=== PATIENT | male | born 1960 | race African-American/Black ===

== ENCOUNTER 2016-12-07 09:53 | Emergency (ER) | payer MEDICAID ==
[~2016-12-07] VITALS: Ht 170.2 cm; Wt 100.0 kg
[~2016-12-07 09:53] MED LIST: ADVA115A INH; ALBUAER3 INH; AMLO10TA2 PO; DEXT1TAB18 PO; GEMF600T PO; GLUCTAB PO; LISI10TA PO; NITR1SUB3 SL; PRIL20TA2 PO; VENTAER INH
[2016-12-07 09:58] VITALS: BP 120/90; PULSE 86; RESP 20; TEMP 98.2; O2SAT 97
[2016-12-07] MEDS ORDERED: SODIUM CHLORIDE 0.9% FLUSH 5 ML FLUSH IVF PRN (10:45)
[2016-12-07] MEDS ORDERED: ASPIRIN 81 MG CHEW TAB PO ONE (10:45)
--- NOTE | 2016-12-07 10:56 | PD ---
HPI Chief Complaint: Chest Pain Time Seen by Provider: 10:19 Travel History International Travel<30 days: No Contact w/Intl Traveler<30days: No Traveled to known affect area: No History of Present Illness HPI 56-year-old male here for evaluation of chest pain. The patient has chronic low back pain. He states that he aggravated his lower back yesterday evening while lifting a heavy object. He went to his primary care physician at the medical office receptionist's today and while walking up the stairs he began to experience substernal chest pain. Pain described as a pressure, nonradiating, constant, worse with exertion, moderate. Low back pain is moderate, radiates down his left leg. He denies direct trauma to his lower back. No urinary or bowel incontinence or retention. No IVDU. No fevers or chills. States that he took 3 Valium yesterday evening and narcotic pain medication at home without relief of low back symptoms. He reports that he sees pain management for this issue. PFSH Past Medical History Arthritis: Yes Asthma: Yes Blood Disorders: No Anxiety: Yes Depression: No Heart Rhythm Problems: No Cancer: No Cardiac Catheterization: No Cardiovascular Problems: Yes High Cholesterol: No Chemotherapy: No Chest Pain: Yes Congestive Heart Failure: No COPD: Yes Cerebrovascular Accident: No Diabetes: Yes Patient Takes Glucophage: Yes Diminished Hearing: No Endocrine: No GERD: Yes Glaucoma: No Genitourinary: No Headaches: No Hepatitis: No Hiatal Hernia: No Hypertension: Yes Kidney Stones: No Musculoskeletal: Yes (back) Neurologic: No Psychiatric: No Reproductive: No Respiratory: Yes (COPD asthma) Migraines: No Myocardial Infarction: No Radiation Therapy: No Renal Failure: No Seizures: No Sickle Cell Disease: No Sleep Apnea: No Thyroid Disease: No Triglycerides - High: Yes Ulcer: No Tetanus Vaccination: < 5 Years Past Surgical History Abdominal Surgery: Yes (LEFT ORCHIECTOMY) AICD: No Appendectomy: No Arteriovenous Shunt: No Cardiac Surgery: No Cholecystectomy: No Coronary Artery Bypass Graft: No Ear Surgery: No Endocrine Surgery: No Eye Surgery: No Genitourinary Surgery: Yes (LEFT TESTICULAR) Gynecologic Surgery: No Insulin Pump: No Joint Replacement: No Oral Surgery: No Pacemaker: No Thoracic Surgery: No Other Surgery: Yes (LEFT TESTICLE REMOVED) Social History Alcohol Use: Yes (4-6 BEERS DAILY) Tobacco Use: Yes (1.5 PPD) Substance Use: Yes (MARIJUANA DAILY) Allergies-Medications (Allergen,Severity, Reaction): Coded Allergies: Penicillin (Verified Allergy, Severe, UNKNOWN, 12/07/16) Reported Meds & Prescriptions Reported Meds & Active Scripts Active Lisinopril-Hctz 10-12.5 Mg Tab 1 Tab PO DAILY Amlodipine (Amlodipine Besylate) 10 Mg Tab 10 Mg PO DAILY Reported Prilosec (Omeprazole Magnesium) 20 Mg Tab 20 Mg PO DAILY Nitroglycerin SL (Nitroglycerin) 0.4 Mg Subl 0.4 Mg SL DIRECTED PRN ONE TABLET UNDER THE TONGUE NEEDED FOR CHEST PAIN, MAY REPEAT EVERY FIVE MINUTES FOR A TOTAL OF 3 DOSES OR CALL 911 IF NO RELIEF Glucophage XR (Metformin HCl) 500 Mg Mark 500 Mg PO DAILY With evening meal Gemfibrozil 600 Mg Tab 600 Mg PO BIDAC Take 30 minutes prior to breakfast and dinner. Ventolin Hfa 18 GM Inh (Albuterol Sulfate) 90 Mcg/Act Aer 2 Puff INH Q4H PRN Advair Hfa 12 GM Inh (Fluticasone-Salmeterol 12 GM Inh) 115-21 Mcg/Act Aer 2 Puff INH BID Review of Systems Except as stated in HPI: all other systems reviewed are Neg Physical Exam Narrative GENERAL: Well-developed, well-nourished, comfortable, no acute distress. SKIN: Warm and dry. No rash. HEAD: Atraumatic. Normocephalic. EYES: Pupils equal and round. No scleral icterus. No injection or drainage. ENT: Mucous membranes pink and moist. NECK: Trachea midline. No JVD. CARDIOVASCULAR: Regular rate and rhythm. Distal pulses brisk and equal bilaterally. RESPIRATORY: No accessory muscle use. Clear to auscultation. Breath sounds equal bilaterally. GASTROINTESTINAL: Abdomen soft, non-tender, nondistended. MUSCULOSKELETAL: No obvious deformities. No clubbing. No cyanosis. No edema. There is lumbar paraspinal tenderness bilaterally and tenderness of bilateral SI joints. Mild midline vertebral tenderness in the lower lumbar area without step-off. NEUROLOGICAL: Awake and alert. No obvious cranial nerve deficits. Motor grossly within normal limits. Normal speech. No focal deficit. Normal strength and sensation in all 4 extremities. Great toe extension present bilaterally. No saddle anesthesia. PSYCHIATRIC: Appropriate mood and affect; insight and judgment normal. Data Data Last Documented VS Vital Signs Date Time Temp Pulse Resp B/P Pulse Ox O2 Delivery O2 Flow Rate FiO2 12/07/16 12:38 142/72 163/97 12/07/16 10:35 98 Room Air 12/07/16 09:58 98.2 86 20 Orders Electrocardiogram (12/07/16 ) Basic Metabolic Panel (Bmp) (12/07/16 10:32) Ckmb (Isoenzyme) Profile (12/07/16 10:32) Complete Blood Count With Diff (12/07/16 10:32) Magnesium (Mg) (12/07/16 10:32) Prothrombin Time / Inr (Pt) (12/07/16 10:32) Act Partial Throm Time (Ptt) (12/07/16 10:32) Troponin I (12/07/16 10:32) Chest, Single Ap (12/07/16 10:32) Ecg Monitoring (12/07/16 10:32) Bilateral Bp Monitoring (12/07/16 10:32) Iv Access Insert/Monitor (12/07/16 10:32) Oximetry (12/07/16 10:32) Oxygen Administration (12/07/16 10:32) Aspirin Chew (Aspirin Chew) (12/07/16 10:45) Sodium Chloride 0.9% Flush (Ns Flush) (12/07/16 10:45) Cta Thor Abd Aorta W Iv C W3d (12/07/16 10:32) CKMB (12/07/16 10:00) CKMB% (12/07/16 10:00) Iohexol 350 Inj (Omnipaque 350 Inj) (12/07/16 12:32) Ketorolac Inj (Toradol Inj) (12/07/16 13:00) Labs Laboratory Tests Test 12/07/16 10:00 White Blood Count 6.2 TH/MM3 Red Blood Count 5.72 MIL/MM3 Hemoglobin 16.6 GM/DL Hematocrit 51.1 % Mean Corpuscular Volume 89.3 FL Mean Corpuscular Hemoglobin 29.1 PG Mean Corpuscular Hemoglobin 32.5 % Concent Red Cell Distribution Width 15.7 % Platelet Count 328 TH/MM3 Mean Platelet Volume 8.4 FL Neutrophils (%) (Auto) 50.4 % Lymphocytes (%) (Auto) 39.2 % Monocytes (%) (Auto) 8.3 % Eosinophils (%) (Auto) 1.2 % Basophils (%) (Auto) 0.9 % Neutrophils # (Auto) 3.1 TH/MM3 Lymphocytes # (Auto) 2.4 TH/MM3 Monocytes # (Auto) 0.5 TH/MM3 Eosinophils # (Auto) 0.1 TH/MM3 Basophils # (Auto) 0.1 TH/MM3 CBC Comment AUTO DIFF Differential Comment AUTO DIFF CONFIRMED Platelet Estimate NORMAL Platelet Morphology Comment ENLARGED Prothrombin Time 10.4 SEC Prothromb Time International 0.9 RATIO Ratio Activated Partial 29.2 SEC Thromboplast Time Sodium Level 137 MEQ/L Potassium Level 3.5 MEQ/L Chloride Level 104 MEQ/L Carbon Dioxide Level 23.7 MEQ/L Anion Gap 9 MEQ/L Blood Urea Nitrogen 9 MG/DL Creatinine 1.21 MG/DL Estimat Glomerular Filtration 75 ML/MIN Rate Random Glucose 101 MG/DL Calcium Level 9.1 MG/DL Magnesium Level 2.2 MG/DL Total Creatine Kinase 207 U/L Creatine Kinase MB 2.9 NG/ML Troponin I LESS THAN 0.02 NG/ML MDM Medical Decision Making Medical Screen Exam Complete: Yes Emergency Medical Condition: Yes Medical Record Reviewed: Yes Interpretation(s) EKG: Sinus, rate 79, normal axis, normal intervals, T-wave inversions in lateral leads. Differential Diagnosis ACS, pneumothorax, pericarditis, PE, pneumonia, chronic low back pain, musculoskeletal strain, cord compression unlikely Narrative Course Vital signs show heart rate 86, blood pressure 120/90, pulse ox 97% on room air , oral temp of 98.2F. CBC is unremarkable. BMP is unremarkable. Cardiac enzymes are negative. Chest x-ray shows no acute disease. CT aorta: CONCLUSION: No acute vascular findings. Enlarged mediastinal lymph nodes, most significantly in the subcarinal region. Emphysema The patient has been ambulating to and from his room to the telephone to make phone calls. He continues to complain of low back pain and is very frustrated because he is not getting any narcotics for this pain. He was made aware of all findings and I told him out like to admit him to the hospital for further cardiac evaluation. He would like to leave AMA. He has a capacity to make this decision. He understands that there are risks of leaving AMA including but not limited to and permanent disability. He was told that he can return to the emergency department at any time and should return for any concerning symptoms. PMD follow-up this week. AMA: The risks of leaving against medical advice without further evaluation treatment were discussed with the patient. These risks include cardiac dysfunction, cardiac dysrhythmia, possible heart attack, possible stroke or . The patient indicated understanding of these risks and appeared to have the capacity to make this decision. Diagnosis Primary Impression: Left against medical advice Additional Impressions: Chest pain Qualified Code: R07.9 - Chest pain, unspecified type Acute exacerbation of chronic low back pain Lymphadenopathy, thoracic Admitting Information Admitting Physician Requests: Observation Referrals: Primary Care Physician 1 day Additional Instructions: Follow-up with your primary care physician in the next 1-2 days. Return to the emergency department for worsening symptoms or any other concerns. Disposition: 07 AGAINST MEDICAL ADVICE Condition: Stable Hal Gannon MD Dec 07, 2016 10:56
[2016-12-07 11:06] LABS: APTT (PATIENT) 29.2 SEC (24.3-30.1); AUTOMATED NEUTROPHIL # 3.1 TH/MM3 (1.8-7.7); BASOPHIL # 0.1 TH/MM3 (0-0.2); BASOPHIL % 0.9 % (0.0-2.0); EOSINOPHIL # 0.1 TH/MM3 (0-0.4); EOSINOPHIL % 1.2 % (0.0-4.0); HEMATOCRIT 51.1 % (39.0-51.0); INTERNATIONAL NORMALIZED RATIO 0.9 RATIO; LYMPH % 39.2 % (9.0-44.0); LYMPHOCYTE # 2.4 TH/MM3 (1.0-4.8); MEAN CELL VOLUME 89.3 FL (80.0-100.0); MEAN CORPUSCULAR HEMOGLOBIN 29.1 PG (27.0-34.0); MEAN CORPUSCULAR HGB CONC 32.5 % (32.0-36.0); MONO % 8.3 % (0.0-8.0); NEUT % 50.4 % (16.0-70.0); PLATELET COUNT 328 TH/MM3 (150-450); PROTHROMBIN TIME - PATIENT 10.4 SEC (9.8-11.6); RED BLOOD COUNT 5.72 MIL/MM3 (4.50-5.90); RED CELL DISTRIBUTION WIDTH 15.7 % (11.6-17.2); WHITE BLOOD COUNT 6.2 TH/MM3 (4.0-11.0)
[2016-12-07 11:08] LABS: HEMO FLAGS AUTO DIFF
[2016-12-07 11:12] LABS: ANION GAP 9 MEQ/L (5-15); BICARBONATE 23.7 MEQ/L (21.0-32.0); BLOOD UREA NITROGEN 9 MG/DL (7-18); CHLORIDE 104 MEQ/L (98-107); GLOMERULAR FILTRATION RATE 75 ML/MIN (>89); MAGNESIUM 2.2 MG/DL (1.5-2.5); POTASSIUM 3.5 MEQ/L (3.5-5.1); SODIUM (NA) 137 MEQ/L (136-145)
[2016-12-07 11:16] LABS: CREATINE KINASE 207 U/L (39-308)
[2016-12-07 11:28] LABS: CKMB 2.9 NG/ML (0.5-3.6)
--- NOTE | 2016-12-07 11:48 | RADRPT ---
EXAM DATE/TIME: 12/07/2016 10:50 [facility] COMPARISON: CHEST PA & LAT, October 20, 2015, 8:27. INDICATIONS : Chest pain. MEDICAL HISTORY : None. SURGICAL HISTORY : None. ENCOUNTER: Initial ACUITY: 2 days PAIN SCORE: 3/10 LOCATION: Left upper chest FINDINGS: A single view of the chest demonstrates the lungs to be symmetrically aerated without evidence of mas s, infiltrate or effusion. The cardiomediastinal contours are unremarkable. Osseous structures are intact. CONCLUSION: 1. No acute cardiopulmonary findings identified. Cal Richey MD on December 07, 2016 at 11:38 Board Certified Radiologist. This report was verified electronically.
[2016-12-07 12:05] LABS: PLATELET ESTIMATE SMEAR NORMAL (NORMAL); PLATELET MORPHOLOGY ENLARGED (NORMAL); SCAN/DIFF AUTO DIFF CONFIRMED
[2016-12-07] MEDS ORDERED: IOHEXOL 350 MG/ML 10 ML VIAL (for RAD DIAG) IV ONE (12:32)
[2016-12-07 12:38] VITALS: BP_SYST 142; BP_SYST 163; BP_DIAS 72; BP_DIAS 97
[2016-12-07] MEDS ORDERED: KETOROLAC TROMETHAMINE 30 MG/ML (IVP) VIAL IV PUSH ONE (13:00)
--- NOTE | 2016-12-07 13:06 | RADRPT ---
EXAM DATE/TIME: 12/07/2016 11:43 [facility] COMPARISON: No previous studies available for comparison. INDICATIONS : Chest pains and back pains today. IV CONTRAST: 75 cc Omnipaque 350 (iohexol) IV RADIATION DOSE: 16.96 CTDIvol (mGy) MEDICAL HISTORY : Chronic obstructive pulmonary disease. Hypertension. Diabetes SURGICAL HISTORY : None. ENCOUNTER: Initial ACUITY: 1 day PAIN SCALE: 6/10 LOCATION: chest TECHNIQUE: Volumetric scanning was performed using a multi-row detector CT scanner. The data was post processed with a variety of visualization algorithms including full volume maximum intensity projection, multi -planar sliding thin slab reformation, curved planar reformation, and surface rendering techniques. Using automated exposure control and adjustment of the mA and/or kV according to patient size, radiat ion dose was kept as low as reasonably achievable to obtain optimal diagnostic quality images. FINDINGS: LUNGS: Emphysema. There is no consolidation or pneumothorax. No concerning pulmonary nodule is visualized. No pleural fluid is present. MEDIASTINUM: An enlarged subcarinal lymph node is identified measuring 3.4 x 1.8 cm. Smaller nodes are present els ewhere in the mediastinum. There is a small hiatal hernia ABDOMEN: The liver and spleen are free of focal defects. The gallbladder and pancreas demonstrate no abnormali ty. The adrenal glands are normal. The kidneys demonstrate no evidence of solid renal mass or hydrone phrosis. No free fluid or abdominal masses are identified. No para-aortic adenopathy is seen. PELVIS: No evidence of free fluid or pelvic mass. No abnormally enlarged inguinal or retroperitoneal lymph no shashi are present. The bladder is unremarkable. THORACIC AORTA: The thoracic aortic root is normal with normal branching of the great vessels. There is no evidence of aneurysm or dissection. ABDOMINAL AORTA: The aorta is normal in caliber without aneurysm or dissection. The renal arteries are patent bilater ally. The proximal celiac and superior mesenteric arteries are patent and normal in diameter. PELVIC VESSELS: Mild iliac atherosclerotic disease. CONCLUSION: No acute vascular findings. Enlarged mediastinal lymph nodes, most significantly in the subcarinal region. Guillermo Mota MD on December 07, 2016 at 12:31 Board Certified Radiologist. This report was verified electronically.
--- NOTE | 2016-12-07 14:02 | PD.AMA ---
Against Medical Advice Note Discharge Disposition: Against Medical Advice Pt Condition on Discharge: Stable AMA Statement Patient Mack Hoffman, Sr has decided to leave the hospital against medical advice. This patient has the capacity to refuse care and understands the risks of leaving, including permanent disability and/or , and has had an opportunity to ask questions about his condition. The patient has been informed that he may return for care at any time, and follow up has been arranged/advised. Dr. Gannon, ED physician spoke with [facility] residents regarding patients primary reason for presenting to the ED and of the findings, and the patient was advised to remain in the hospital however he refused further care. The patient was also advised to follow up with his primary care physician Dr. Remy Khan who has been notified of this patients visit to the ED. Masood Cruz MD R1 Dec 07, 2016 14:02
--- NOTE | 2016-12-07 14:57 | EKG ---
Date Performed: 12/07/2016 Time Performed: 10:11:20 PTAGE: 56 years EKG: Sinus rhythm NONSPECIFIC T-WAVE ABNORMALITY BORDERLINE ECG NO SIGNIFICANT CHANGE FROM PRIOR ELECTROCARDIOGRAM. PREVIOUS TRACING : 10/20/2015 01.24 DOCTOR: Jamison Hurley Interpretating Date/Time 12/07/2016 14:55:41
[2016-12-23] MEDS ORDERED: HYDR-3516 PO (15:38)
[2017-01-09] MEDS ORDERED: HYDR-3583 PO (14:18)
[2017-01-09] MEDS ORDERED: KETO60IN6 IM ×2 (14:18→14:39)
[2017-01-20] MEDS ORDERED: DICL1GEL TOPICAL (10:48)
[2017-01-20] MEDS ORDERED: LUMBAR BACK BRA1 MIS (11:14)
[2017-01-20] MEDS ORDERED: HYDR-3583 PO (11:16)
[2017-01-23] MEDS ORDERED: PRIL20TA2 PO (15:03)
[2017-02-02] MEDS ORDERED: HYDR-3583 PO (10:28)
[2017-02-23] MEDS ORDERED: HYDR-3583 PO (10:37)
[2017-02-23] MEDS ORDERED: METH4PAK PO (10:37)
[2017-02-23] MEDS ORDERED: AZIT250T3 PO (10:37)
[2017-02-23] MEDS ORDERED: BENZ1CAP34 PO (10:37)
[2017-02-26] MEDS ORDERED: PRIL20TA2 PO (16:25)
[2017-03-16] MEDS ORDERED: NAPR500T PO (13:47)
[2017-03-16] MEDS ORDERED: HYDR-3583 PO (13:48)
[2017-03-31] MEDS ORDERED: PRIL20TA2 PO (15:58)
[2017-03-31] MEDS ORDERED: ADVA115A INH (15:59)
[2017-05-04] MEDS ORDERED: PRIL20TA2 PO (16:17)
== END 2016-12-07 13:44 | disposition left against medical advice (07) ==
LOC: NEPC 09:53
DX: R07.9 Chest pain, unspecified (principal); M54.5 Low back pain; G89.29 Other chronic pain; R59.9 Enlarged lymph nodes, unspecified; R94.31 Abnormal electrocardiogram [ECG] [EKG]; J44.9 Chronic obstructive pulmonary disease, unspecified; E11.9 Type 2 diabetes mellitus without complications; I10 Essential (primary) hypertension; F10.10 Alcohol abuse, uncomplicated; F17.210 Nicotine dependence, cigarettes, uncomplicated; F12.90 Cannabis use, unspecified, uncomplicated
CPT/HCPCS: 71010; 71275; 74174; 80048; 82550; 82552; 83735; 84484; 85025; 85610; 85730; 93005; 96374; 99285; J1885; Q9967

== ENCOUNTER 2016-12-17 15:06 | Inpatient (IN) | payer OTHER, MEDICAID ==
[~2016-12-17] VITALS: Ht 170.2 cm; Wt 101.0 kg
[2016-12-17] VITALS (7 sets, daily range): BP systolic 141–176; BP diastolic 66–91; PULSE 83–92; RESP 16–20; TEMP 97.4–98.1; O2SAT 93–98
[~2016-12-17 15:06] MED LIST changes: -ALBUAER3 INH; -DEXT1TAB18 PO; +METFORMIN HOLD POST IV CONTRAST XX SCH
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
[2016-12-17] MEDS ORDERED: HYDROmorphone HCL PF 1 MG/ML VIAL IV PUSH ONE ×2 (15:30→16:15)
[2016-12-17 15:49] LABS: AUTOMATED NEUTROPHIL # 4.8 TH/MM3 (1.8-7.7); BASOPHIL % 0.4 % (0.0-2.0); EOSINOPHIL # 0.1 TH/MM3 (0-0.4); EOSINOPHIL % 1.1 % (0.0-4.0); HEMATOCRIT 43.1 % (39.0-51.0); HEMO FLAGS DIFF FINAL; LYMPH % 36.2 % (9.0-44.0); LYMPHOCYTE # 3.2 TH/MM3 (1.0-4.8); MEAN CELL VOLUME 88.8 FL (80.0-100.0); MEAN CORPUSCULAR HEMOGLOBIN 29.9 PG (27.0-34.0); MEAN CORPUSCULAR HGB CONC 33.7 % (32.0-36.0); MONO % 8.1 % (0.0-8.0); NEUT % 54.2 % (16.0-70.0); PLATELET COUNT 324 TH/MM3 (150-450); RED BLOOD COUNT 4.85 MIL/MM3 (4.50-5.90); RED CELL DISTRIBUTION WIDTH 15.2 % (11.6-17.2); WHITE BLOOD COUNT 8.8 TH/MM3 (4.0-11.0)
[2016-12-17 16:10] LABS: ALT (GPT) 30 U/L (12-78); ANION GAP 7 MEQ/L (5-15); AST (GOT) 30 U/L (15-37); BICARBONATE 26.9 MEQ/L (21.0-32.0); BLOOD UREA NITROGEN 9 MG/DL (7-18); CHLORIDE 106 MEQ/L (98-107); GLOMERULAR FILTRATION RATE 91 ML/MIN (>89); POTASSIUM 3.7 MEQ/L (3.5-5.1); SODIUM (NA) 140 MEQ/L (136-145)
[2016-12-17 16:13] LABS: ALKALINE PHOSPHATASE 75 U/L (45-117); TOTAL BILIRUBIN ADULT 0.4 MG/DL (0.2-1.0)
[2016-12-17] MEDS ORDERED: IOHEXOL 350 MG/ML 10 ML VIAL (for RAD DIAG) IV ONE (16:29)
--- NOTE | 2016-12-17 16:30 | RADRPT ---
EXAM DATE/TIME: 12/17/2016 15:33 [facility] COMPARISON: CHEST SINGLE AP, December 07, 2016, 10:50. INDICATIONS : Short of breath. MEDICAL HISTORY : None. SURGICAL HISTORY : None. ENCOUNTER: Initial ACUITY: 1 day PAIN SCORE: 10/10 LOCATION: Bilateral chest FINDINGS: A single view of the chest demonstrates the lungs to be symmetrically aerated without evidence of mas s, infiltrate or effusion. The cardiomediastinal contours are unremarkable. Osseous structures are intact. CONCLUSION: Normal examination for a patient of this age. Kwame Jones MD on December 17, 2016 at 16:28 Board Certified Radiologist. This report was verified electronically.
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
[2016-12-17] MEDS ORDERED: KETOROLAC TROMETHAMINE 30 MG/ML (IVP) VIAL IVP ONE (18:00)
[2016-12-17 18:07] LABS: AMPHETAMINE, URINE NEG (NEG); BARBITURATES, URINE NEG (NEG); COCAINE, URINE POS (NEG)
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
[2016-12-17] MEDS ORDERED: ENALAPRILAT 1.25 MG/ML VIAL IV PRN (18:15)
[2016-12-17] MEDS ORDERED: ONDANSETRON HCL 4 MG/2 ML VIAL IV PRN (18:15)
[2016-12-17] MEDS ORDERED: NITROGLYCERIN 0.4 MG SL 25 TABS/BTL SL PRN (18:15)
[2016-12-17] MEDS ORDERED: MAGNESIUM HYDROXIDE SUSP 30 ML CUP PO PRN (18:15)
[2016-12-17] MEDS ORDERED: MISCELLANEOUS NURSING INFORMATION XX SCH (18:15)
[2016-12-17] MEDS ORDERED: CHLORHEXIDINE GLUCONATE 2 % 1 PACK (2 CLOTHS) TOP PRN (18:15)
[2016-12-17] MEDS ORDERED: DEXTROSE 50% IN WATER 50 ML VIAL(D50) IV PUSH PRN (18:15)
[2016-12-17] MEDS ORDERED: GLUCAGON 1 MG/ML VIAL OTHER PRN (18:15)
[2016-12-17] MEDS ORDERED: SODIUM CHLORIDE 0.9% FLUSH 5 ML FLUSH IVF PRN (18:15)
[2016-12-17] MEDS: ENOXAPARIN SODIUM 30 MG/0.3 ML SYRINGE SQ SCH (20:12)
[2016-12-17] MEDS: DOCUSATE SODIUM 100 MG CAP PO SCH (21:56)
[2016-12-17] MEDS: IBUPROFEN 600 MG TAB PO SCH (23:46)
[2016-12-18] VITALS (9 sets, daily range): BP systolic 117–165; BP diastolic 68–96; PULSE 71–82; RESP 16–20; TEMP 96.1–97.2; O2SAT 92–97
[2016-12-18] MEDS: HYDROmorphone HCL PF 1 MG/ML VIAL IVP PRN ×2 (01:36→04:44)
[2016-12-18] MEDS ORDERED: CHLORHEXIDINE GLUCONATE 2 % 1 PACK (2 CLOTHS) TOP SCH (04:00)
[2016-12-18] MEDS: GEMFIBROZIL 600 MG TAB PO SCH ×2 (06:44→14:21)
[2016-12-18] MEDS: IBUPROFEN 600 MG TAB PO SCH ×2 (06:44→10:35)
[2016-12-18] MEDS: HYDROCHLOROTHIAZIDE 12.5 MG CAP PO SCH (07:42)
[2016-12-18] MEDS: MULTIVITAMIN TAB PO SCH (07:42)
[2016-12-18] MEDS: ENOXAPARIN SODIUM 30 MG/0.3 ML SYRINGE SQ SCH ×2 (07:42→20:16)
[2016-12-18] MEDS: DOCUSATE SODIUM 100 MG CAP PO SCH ×2 (07:42→20:16)
[2016-12-18] MEDS: LISINOPRIL 10 MG TAB PO SCH (07:42)
[2016-12-18 08:02] LABS: AUTOMATED NEUTROPHIL # 6.2 TH/MM3 (1.8-7.7); BASOPHIL % 0.5 % (0.0-2.0); EOSINOPHIL # 0.1 TH/MM3 (0-0.4); EOSINOPHIL % 1.5 % (0.0-4.0); HEMATOCRIT 43.3 % (39.0-51.0); HEMO FLAGS DIFF FINAL; LYMPH % 19.7 % (9.0-44.0); LYMPHOCYTE # 1.7 TH/MM3 (1.0-4.8); MEAN CELL VOLUME 91.4 FL (80.0-100.0); MEAN CORPUSCULAR HEMOGLOBIN 29.5 PG (27.0-34.0); MEAN CORPUSCULAR HGB CONC 32.3 % (32.0-36.0); MONO % 8.1 % (0.0-8.0); NEUT % 70.2 % (16.0-70.0); PLATELET COUNT 272 TH/MM3 (150-450); RED BLOOD COUNT 4.74 MIL/MM3 (4.50-5.90); RED CELL DISTRIBUTION WIDTH 15.4 % (11.6-17.2); WHITE BLOOD COUNT 8.8 TH/MM3 (4.0-11.0)
[2016-12-18 08:40] LABS: BICARBONATE 24.6 MEQ/L (21.0-32.0)
[2016-12-18 08:44] LABS: POTASSIUM 3.8 MEQ/L (3.5-5.1)
--- NOTE | 2016-12-18 12:25 | EKG ---
Date Performed: 12/17/2016 Time Performed: 15:18:54 PTAGE: 56 years EKG: Sinus rhythm NONSPECIFIC T-WAVE ABNORMALITY Since previous tracing, no significant change noted BORDERLINE ECG PREVIOUS TRACING : 12/07/2016 10.11 DOCTOR: Ba Mitchell Interpretating Date/Time 12/18/2016 12:23:12
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
[2016-12-18] MEDS: DIAZEPAM 2 MG TAB PO SCH ×2 (15:28→23:25)
[2016-12-18] MEDS: RESP: ALBUTEROL 2.5 MG/IPRATROPIUM 0.5 MG NEB (SCH) NEB ×2 (15:39→20:03)
[2016-12-18] MEDS: IBUPROFEN 800 MG TAB PO SCH ×2 (17:49→23:25)
[2016-12-19 00:25] VITALS: BP 142/72; PULSE 75; RESP 18; TEMP 97.5; O2SAT 93
[2016-12-19 04:15] VITALS: BP 149/70; PULSE 75; RESP 19; TEMP 97.4; O2SAT 94
[2016-12-19] MEDS: GEMFIBROZIL 600 MG TAB PO SCH (06:23)
[2016-12-19] MEDS: IBUPROFEN 800 MG TAB PO SCH ×2 (06:23→11:18)
[2016-12-19] MEDS: DIAZEPAM 2 MG TAB PO SCH ×2 (06:23→15:48)
[2016-12-19 08:00] VITALS: BP 121/81; PULSE 76; RESP 18; TEMP 96.5; O2SAT 95
[2016-12-19] MEDS: HYDROCHLOROTHIAZIDE 12.5 MG CAP PO SCH (08:33)
[2016-12-19] MEDS: LISINOPRIL 10 MG TAB PO SCH (08:33)
[2016-12-19] MEDS: MULTIVITAMIN TAB PO SCH (08:33)
[2016-12-19] MEDS: DOCUSATE SODIUM 100 MG CAP PO SCH (08:33)
[2016-12-19] MEDS: ENOXAPARIN SODIUM 30 MG/0.3 ML SYRINGE SQ SCH (08:33)
[2016-12-19] MEDS: RESP: ALBUTEROL 2.5 MG/IPRATROPIUM 0.5 MG NEB (SCH) NEB ×2 (09:54→13:23)
--- NOTE | 2016-12-19 11:38 | HHI.FF ---
Face to Face Verification Diagnosis: (1) Sternal fracture Physical Therapy Order: Evaluate and Treat, Improve ambulation, Strength and gait training Home Health Nursing Order: Nursing assessment with vital signs I have seen patient Mack Katelynn Hoffman Sr on 12/19/16. My clinical findings support the need for the requested home health care services because: Deconditioned w/ increased weakness Limited ability to care for self High risk of falls I certify that my clinical findings support that this patient is homebound because: Post-op weakness Hx COPD- exertion dyspnea/weakness Unsteady gait/balance Paige Pantoja Dec 19, 2016 11:38
[2016-12-19 12:00] VITALS: BP 113/82; PULSE 92; RESP 18; TEMP 97.5; O2SAT 95
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
[2016-12-19] MEDS ORDERED: NON-FORMULARY DRUG (Lisinopril-Hctz 1 TAB) PO SCH (12:45)
[2016-12-19] MEDS ORDERED: ALBUTEROL SULFATE 90 MCG/ACT HFA 8 GM INHALER INH PRN (12:45)
[2016-12-19] MEDS ORDERED: OXYC-392 PO (14:57)
[2016-12-19 16:00] VITALS: BP 160/83; PULSE 98; RESP 18; TEMP 97.6; O2SAT 96
[2016-12-19] MEDS ORDERED: GEMFIBROZIL 600 MG TAB PO SCH (16:00)
[2016-12-19] MEDS ORDERED: metFORMIN HCL 500 MG TAB PO SCH (18:00)
[2016-12-19] MEDS ORDERED: BUDESONIDE-FORMOTEROL 160/4.5 MCG INHALER INH SCH (21:00)
[2016-12-19] MEDS ORDERED: NON-FORMULARY DRUG (Fluticasone-Salmeterol 12 GM Inh (Advair Hfa 12 GM Inh) 2 PUFF) INH SCH (21:00)
[2016-12-20] MEDS ORDERED: PANTOPRAZOLE SOD 20 MG DELAYED RELEASE TAB PO SCH (09:00)
[2016-12-23] MEDS ORDERED: HYDR-3516 PO (15:38)
[2017-01-09] MEDS ORDERED: KETO60IN6 IM ×2 (14:18→14:39)
[2017-01-09] MEDS ORDERED: HYDR-3583 PO (14:18)
[2017-01-20] MEDS ORDERED: DICL1GEL TOPICAL (10:48)
[2017-01-20] MEDS ORDERED: LUMBAR BACK BRA1 MIS (11:14)
[2017-01-20] MEDS ORDERED: HYDR-3583 PO (11:16)
[2017-01-23] MEDS ORDERED: PRIL20TA2 PO (15:03)
[2017-02-02] MEDS ORDERED: HYDR-3583 PO (10:28)
[2017-02-23] MEDS ORDERED: HYDR-3583 PO (10:37)
[2017-02-23] MEDS ORDERED: AZIT250T3 PO (10:37)
[2017-02-23] MEDS ORDERED: METH4PAK PO (10:37)
[2017-02-23] MEDS ORDERED: BENZ1CAP34 PO (10:37)
[2017-02-26] MEDS ORDERED: PRIL20TA2 PO (16:25)
[2017-03-16] MEDS ORDERED: NAPR500T PO (13:47)
[2017-03-16] MEDS ORDERED: HYDR-3583 PO (13:48)
[2017-03-31] MEDS ORDERED: PRIL20TA2 PO (15:58)
[2017-03-31] MEDS ORDERED: ADVA115A INH (15:59)
[2017-05-04] MEDS ORDERED: PRIL20TA2 PO (16:17)
== END 2016-12-19 19:50 | disposition home health service (06) | DRG 185 ==
LOC: NEPE 15:06 → NEDA 17:33 → OBSVTOIN 18:14 → N06B 20:39
PROVIDERS: ADMIT Surgery; ATTEND Surgery
DX: S22.20XA Unspecified fracture of sternum, initial encounter for closed fracture (principal); J44.9 Chronic obstructive pulmonary disease, unspecified; I10 Essential (primary) hypertension; E11.9 Type 2 diabetes mellitus without complications; E78.5 Hyperlipidemia, unspecified; J45.909 Unspecified asthma, uncomplicated; K21.9 Gastro-esophageal reflux disease without esophagitis; F10.10 Alcohol abuse, uncomplicated; F12.90 Cannabis use, unspecified, uncomplicated; F17.209 Nicotine dependence, unspecified, with unspecified nicotine-induced disorders; V49.40XA Driver injured in collision with unspecified motor vehicles in traffic accident, initial encounter; Y92.481 Parking lot as the place of occurrence of the external cause
CPT/HCPCS: 70450; 71010; 71260; 72125; 74177; 80048; 80053; 80307; 80320; 82565; 82948; 84484; 85025; 93005; 94150; 94640; 94664; 96374; 96376; J1170; J1650; J1885; Q9967

== ENCOUNTER 2017-09-21 13:17 | Observation (INO) | payer MEDICAID ==
[~2017-09-21 13:17] MED LIST changes: +DICL1GEL TOPICAL; +HYDR-3583 PO; +LUMBAR BACK BRA1 MIS; -METFORMIN HOLD POST IV CONTRAST XX SCH; +NAPR500T2 PO
[2017-09-21 13:18] VITALS: BP 164/78; PULSE 88; RESP 16; TEMP 98.6; O2SAT 95
[2017-09-21] MEDS ORDERED: ASPIRIN 81 MG CHEW TAB PO ONE (13:30)
[2017-09-21] MEDS ORDERED: NITROGLYCERIN 0.4 MG SL 25 TABS/BTL SL ONE (13:45)
[2017-09-21 14:05] VITALS: BP 141/68; PULSE 90; PULSE 92; RESP 18; O2SAT 99
[2017-09-21 14:08] VITALS: BP 156/72; PULSE 89; RESP 16; O2SAT 98
[2017-09-21 14:12] LABS: AUTOMATED NEUTROPHIL # 4.2 TH/MM3 (1.8-7.7); BASOPHIL % 0.5 % (0.0-2.0); EOSINOPHIL # 0.1 TH/MM3 (0-0.4); EOSINOPHIL % 1.5 % (0.0-4.0); HEMATOCRIT 44.4 % (39.0-51.0); HEMO FLAGS DIFF FINAL; LYMPH % 32.4 % (9.0-44.0); LYMPHOCYTE # 2.4 TH/MM3 (1.0-4.8); MEAN CELL VOLUME 92.6 FL (80.0-100.0); MEAN CORPUSCULAR HEMOGLOBIN 31.2 PG (27.0-34.0); MEAN CORPUSCULAR HGB CONC 33.7 % (32.0-36.0); MONO % 7.5 % (0.0-8.0); NEUT % 58.1 % (16.0-70.0); PLATELET COUNT 279 TH/MM3 (150-450); RED BLOOD COUNT 4.79 MIL/MM3 (4.50-5.90); RED CELL DISTRIBUTION WIDTH 14.7 % (11.6-17.2); WHITE BLOOD COUNT 7.3 TH/MM3 (4.0-11.0)
[2017-09-21] MEDS ORDERED: methylPREDNISolone SOD SUCC 125 MG/2 ML VIAL IV PUSH ONE (14:15)
[2017-09-21 14:18] LABS: APTT (PATIENT) 27.2 SEC (24.3-30.1); INTERNATIONAL NORMALIZED RATIO 0.9 RATIO; PROTHROMBIN TIME - PATIENT 9.6 SEC (9.8-11.6)
[2017-09-21] MEDS ORDERED: ALBUTEROL INH (14:19)
[2017-09-21] MEDS ORDERED: LISI10TA3 PO (14:19)
[2017-09-21] MEDS ORDERED: FLUT1AER4 (14:19)
[2017-09-21] MEDS: RESP: ALBUTEROL 2.5 MG/IPRATROPIUM 0.5 MG NEB (SCH) INH ×2 (14:21→14:22)
[2017-09-21 14:47] LABS: ALKALINE PHOSPHATASE 77 U/L (45-117); CREATINE KINASE 269 U/L (39-308); TOTAL BILIRUBIN ADULT 0.2 MG/DL (0.2-1.0)
[2017-09-21 14:52] LABS: ALT (GPT) 25 U/L (12-78); ANION GAP 9 MEQ/L (5-15); AST (GOT) 22 U/L (15-37); BICARBONATE 23.5 MEQ/L (21.0-32.0); BLOOD UREA NITROGEN 13 MG/DL (7-18); CHLORIDE 106 MEQ/L (98-107); GLOMERULAR FILTRATION RATE 86 ML/MIN (>89); MAGNESIUM 2.2 MG/DL (1.5-2.5); POTASSIUM 3.5 MEQ/L (3.5-5.1); SODIUM (NA) 138 MEQ/L (136-145)
[2017-09-21 15:00] LABS: CKMB 3.4 NG/ML (0.5-3.6)
--- NOTE | 2017-09-21 15:19 | PD ---
HPI Chief Complaint: Chest Pain Time Seen by Provider: 13:36 Travel History International Travel<30 days: No Contact w/Intl Traveler<30days: No Traveled to known affect area: No History of Present Illness HPI 56-year-old male resents to the emergency room for evaluation of left-sided chest pain that started in the middle of the night and woke him up. Patient states pain is constant and worse with deep breathing and when he pushes on his chest. He has radiation down his left upper extremity and back. He thought it was indigestion and took gas medication but it did not improve symptoms. No exacerbation with exertion. He reports increasing nonproductive cough over the past several days but denies fever, chills, nausea, and vomiting. He has history of COPD and uses albuterol as needed. Last stress test was 2014 which showed no ischemic changes and ejection fraction 67%. 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 He usually takes nitroglycerin for chest pain but has not taken it today. Patient also has history of diabetes, hypertension, hypercholesterolemia, and asthma. PFSH Past Medical History Arthritis: Yes Asthma: Yes Blood Disorders: No Anxiety: Yes Depression: No Heart Rhythm Problems: No Cancer: No Cardiac Catheterization: No Cardiovascular Problems: Yes (HTN) High Cholesterol: Yes Chemotherapy: No Chest Pain: Yes Congestive Heart Failure: No COPD: Yes Cerebrovascular Accident: No Diabetes: Yes Patient Takes Glucophage: No Diminished Hearing: No Endocrine: No GERD: Yes Glaucoma: No Genitourinary: No Headaches: No Hepatitis: No Hiatal Hernia: No Hypertension: Yes Kidney Stones: No Musculoskeletal: Yes (back) Neurologic: No Psychiatric: No Reproductive: No Respiratory: Yes (COPD asthma) Migraines: No Myocardial Infarction: No Radiation Therapy: No Renal Failure: No Seizures: No Sickle Cell Disease: No Sleep Apnea: No Thyroid Disease: No Triglycerides - High: Yes Ulcer: No Tetanus Vaccination: < 5 Years Influenza Vaccination: Yes Past Surgical History Abdominal Surgery: Yes (LEFT ORCHIECTOMY) AICD: No Appendectomy: No Arteriovenous Shunt: No Cardiac Surgery: No Cholecystectomy: No Coronary Artery Bypass Graft: No Ear Surgery: No Endocrine Surgery: No Eye Surgery: No Genitourinary Surgery: Yes (LEFT TESTICULAR) Gynecologic Surgery: No Insulin Pump: No Joint Replacement: No Oral Surgery: No Pacemaker: No Thoracic Surgery: No Other Surgery: Yes (LEFT TESTICLE REMOVED) Social History Alcohol Use: Yes (4-6 BEERS DAILY) Tobacco Use: Yes (1.5 PPD) Substance Use: Yes (MARIJUANA AND COCAINE) Allergies-Medications (Allergen,Severity, Reaction): Coded Allergies: penicillin G (Verified Allergy, Severe, UNKNOWN, 09/21/17) Reported Meds & Prescriptions Reported Meds & Active Scripts Active Glucophage XR (Metformin HCl) 500 Mg Mark 500 Mg PO DAILY With evening meal Prilosec (Omeprazole Magnesium) 20 Mg Tab 20 Mg PO DAILY Lumbar Back Brace/Support 1 Mis Mis 1 Ea .ROUTE DIRECTED Amlodipine (Amlodipine Besylate) 10 Mg Tab 10 Mg PO DAILY Reported Lisinopril 10 Mg Tab 10 Mg PO DAILY Fluticasone-Salmeterol 113-14 (Fluticasone/Salmeterol) 113 Mcg-14 Mcg/Actuation Aer.pow.ba [Albuterol Inh] Nitroglycerin SL (Nitroglycerin) 0.4 Mg Subl 0.4 Mg SL DIRECTED PRN ONE TABLET UNDER THE TONGUE NEEDED FOR CHEST PAIN, MAY REPEAT EVERY FIVE MINUTES FOR A TOTAL OF 3 DOSES OR CALL 911 IF NO RELIEF Review of Systems Except as stated in HPI: all other systems reviewed are Neg Physical Exam Narrative GENERAL: Well-nourished, well-developed male in no acute distress. Afebrile. Ambulatory. SKIN: Focused skin assessment warm/dry. No diaphoresis. HEAD: Normocephalic. EYES: No scleral icterus. No injection or drainage. NECK: Supple, trachea midline. No JVD or lymphadenopathy. CARDIOVASCULAR: Regular rate and rhythm without murmurs, gallops, or rubs. RESPIRATORY: Breath sounds equal bilaterally. No accessory muscle use. CHEST: Nontender throughout without deformity or crepitus. No retractions or use of accessory muscles. GASTROINTESTINAL: Abdomen soft, non-tender, nondistended. Data Data Last Documented VS Vital Signs Date Time Temp Pulse Resp B/P (MAP) Pulse Ox O2 Delivery O2 Flow Rate FiO2 09/21/17 14:08 89 16 156/72 (100) 98 Nasal Cannula 2.00 09/21/17 13:18 98.6 Orders Orders Electrocardiogram (09/21/17 13:27) Ckmb (Isoenzyme) Profile (09/21/17 13:27) Complete Blood Count With Diff (09/21/17 13:27) Comprehensive Metabolic Panel (09/21/17 13:27) Magnesium (Mg) (09/21/17 13:27) Prothrombin Time / Inr (Pt) (09/21/17 13:27) Act Partial Throm Time (Ptt) (09/21/17 13:27) Troponin I (09/21/17 13:27) Ecg Monitoring (09/21/17 13:27) Bilateral Bp Monitoring (09/21/17 13:27) Iv Access Insert/Monitor (09/21/17 13:27) Oximetry (09/21/17 13:27) Oxygen Administration (09/21/17 13:27) Aspirin Chew (Aspirin Chew) (09/21/17 13:30) Chest, Pa & Lat (09/21/17 13:27) Nitroglycerin Sl (Nitrostat Sl) (09/21/17 13:45) Methylprednisolone So Succ Inj (Solumedr (09/21/17 14:15) Albuterol-Ipratropium Neb (Duoneb Neb) (09/21/17 14:15) CKMB (09/21/17 13:45) CKMB% (09/21/17 13:45) Admit Order (Ed Use Only) (09/21/17 15:51) Activity Bed Rest With Brp (09/21/17 15:51) Vital Signs (Adult) Q4H (09/21/17 15:51) Cardiac Rhythm .As Directed (09/21/17 15:51) Notify Dr: Other .PRN (09/21/17 15:51) Notify Parameters (09/21/17 15:51) Resp Oxygen Nasal Cannula (09/21/17 ) Diet Npo (09/21/17 Dinner) Ckmb (Isoenzyme) Profile (09/21/17 16:45) Ckmb (Isoenzyme) Profile (09/21/17 19:45) Troponin I (09/21/17 16:45) Troponin I (09/21/17 19:45) Electrocardiogram (09/21/17 16:45) Electrocardiogram (09/21/17 19:45) ^ Obtain (09/21/17 15:51) Sodium Chloride 0.9% Flush (Ns Flush) (09/21/17 16:00) Sodium Chloride 0.9% Flush (Ns Flush) (09/21/17 21:00) Yard Truck Driver / Telemetry [email or web address].[email or web address] (09/21/17 15:51) Labs Laboratory Tests Test 09/21/17 13:45 White Blood Count 7.3 TH/MM3 Red Blood Count 4.79 MIL/MM3 Hemoglobin 15.0 GM/DL Hematocrit 44.4 % Mean Corpuscular Volume 92.6 FL Mean Corpuscular Hemoglobin 31.2 PG Mean Corpuscular Hemoglobin Concent 33.7 % Red Cell Distribution Width 14.7 % Platelet Count 279 TH/MM3 Mean Platelet Volume 8.2 FL Neutrophils (%) (Auto) 58.1 % Lymphocytes (%) (Auto) 32.4 % Monocytes (%) (Auto) 7.5 % Eosinophils (%) (Auto) 1.5 % Basophils (%) (Auto) 0.5 % Neutrophils # (Auto) 4.2 TH/MM3 Lymphocytes # (Auto) 2.4 TH/MM3 Monocytes # (Auto) 0.5 TH/MM3 Eosinophils # (Auto) 0.1 TH/MM3 Basophils # (Auto) 0.0 TH/MM3 CBC Comment DIFF FINAL Differential Comment Prothrombin Time 9.6 SEC Prothromb Time International Ratio 0.9 RATIO Activated Partial Thromboplast Time 27.2 SEC Blood Urea Nitrogen 13 MG/DL Creatinine 1.07 MG/DL Random Glucose 107 MG/DL Total Protein 7.3 GM/DL Albumin 3.6 GM/DL Calcium Level 8.7 MG/DL Magnesium Level 2.2 MG/DL Alkaline Phosphatase 77 U/L Aspartate Amino Transf (AST/SGOT) 22 U/L Alanine Aminotransferase (ALT/SGPT) 25 U/L Total Bilirubin 0.2 MG/DL Sodium Level 138 MEQ/L Potassium Level 3.5 MEQ/L Chloride Level 106 MEQ/L Carbon Dioxide Level 23.5 MEQ/L Anion Gap 9 MEQ/L Estimat Glomerular Filtration Rate 86 ML/MIN Total Creatine Kinase 269 U/L Creatine Kinase MB 3.4 NG/ML Troponin I LESS THAN 0.02 NG/ML MDM Medical Decision Making Medical Screen Exam Complete: Yes Emergency Medical Condition: Yes Medical Record Reviewed: Yes Differential Diagnosis Chest pain, CAD, COPD exacerbation, pneumonia Narrative Course 56-year-old male with history of hypertension, diabetes, GERD, COPD, and hyperlipidemia presents to the emergency room for evaluation of left-sided chest pressure with associated shortness of breath that woke him up from sleep last night. Chest pain is worse with deep breathing. He took gas medication and it did not improve his symptoms. CBC and CMP are unremarkable. Troponin is less than 0.02. EKG shows sinus rhythm with a rate of 79 beats for minute and no concerning ST changes. It was similar to the EKG from December this year. Chest x-ray is negative. Patient was given Solu-Medrol, 3 DuoNebs, and nitroglycerin in the emergency room with complete resolution of symptoms. He has multiple risk factors for CAD. He will be admitted to chest pain center for serial troponin and EKG. Patient is amenable to plan. After being admitted, patient was heard screaming on his phone. He stated that he could not stay because he needed to take care of his dog. Patient stated he is pain-free and will return if he has more chest pain. He was given risks and benefits but still decided to leave AGAINST MEDICAL ADVICE. AMA: The risks of leaving against medical advice without further evaluation treatment were discussed with the patient. These risks include cardiac dysfunction, cardiac dysrhythmia, possible heart attack, possible stroke or . The patient indicated understanding of these risks and appeared to have the capacity to make this decision. Diagnosis Primary Impression: Chest pain Qualified Codes: R07.89 - Other chest pain Referrals: Primary Care Physician Condition: Stable Koki Alejandre Sep 21, 2017 15:19
--- NOTE | 2017-09-21 15:47 | RADRPT ---
EXAM DATE/TIME: 09/21/2017 14:59 [facility] COMPARISON: CHEST PA & LAT, October 20, 2015, 8:27. INDICATIONS : Chest pain MEDICAL HISTORY : Asthma, Hypertension. Gastroesophageal reflux disease. Diabetes mellitus type 2.COPD SURGICAL HISTORY : None. ENCOUNTER: Initial ACUITY: 1 day PAIN SCORE: 3/10 LOCATION: chest FINDINGS: Frontal and lateral views of the chest demonstrate a normal-sized cardiac silhouette. No effusion, co nsolidation, or pneumothorax is visualized. The bones and soft tissues demonstrate no acute abnormali ty. EKG lines overlie the patient. CONCLUSION: No acute cardiopulmonary abnormality is identified. Guillermo Hale MD on September 21, 2017 at 15:45 Board Certified Radiologist. This report was verified electronically.
[2017-09-21] MEDS ORDERED: SODIUM CHLORIDE 0.9% FLUSH 10 ML FLUSH IV FLUSH PRN (16:00)
[2017-09-21] MEDS ORDERED: ACETAMINOPHEN 500 MG CPLT PO PRN (16:15)
[2017-09-21] MEDS ORDERED: ONDANSETRON HCL 4 MG/2 ML VIAL IV PUSH PRN (16:15)
[2017-09-21] MEDS ORDERED: NITROGLYCERIN 0.4 MG SL 25 TABS/BTL SL PRN (16:15)
[2017-09-21 18:49] VITALS: O2SAT 98
[2017-09-21] MEDS ORDERED: SODIUM CHLORIDE 0.9% FLUSH 10 ML FLUSH IV FLUSH SCH (21:00)
[2017-09-22] MEDS ORDERED: ASPIRIN 325 MG TAB PO SCH (09:00)
--- NOTE | 2017-09-22 18:21 | EKG ---
Date Performed: 09/21/2017 Time Performed: 13:56:52 PTAGE: 56 years EKG: Sinus rhythm WITH SINUS ARRHYTHMIA NONSPECIFIC T-WAVE ABNORMALITY BORDERLINE ECG INTERPRETATION BASED ON A DEFAUL T AGE OF 38 YEARS PREVIOUS TRACING : 12/17/2016 15.18 DOCTOR: Bernadette Rashid Interpretating Date/Time 09/22/2017 18:16:37
== END 2017-09-21 16:15 | disposition left against medical advice (07) ==
LOC: NEPD 13:17 → NEDA 15:55
PROVIDERS: ADMIT Internal Medicine Interventional Cardiology; ATTEND Internal Medicine Interventional Cardiology
DX: R07.89 Other chest pain (principal); J44.9 Chronic obstructive pulmonary disease, unspecified; I10 Essential (primary) hypertension; E78.00 Pure hypercholesterolemia, unspecified; E11.9 Type 2 diabetes mellitus without complications; F41.9 Anxiety disorder, unspecified; K21.9 Gastro-esophageal reflux disease without esophagitis; F17.210 Nicotine dependence, cigarettes, uncomplicated; R94.31 Abnormal electrocardiogram [ECG] [EKG]
CPT/HCPCS: 71020; 80053; 82550; 82552; 83735; 84484; 85025; 85610; 85730; 93005; 94664; 96374; 99285; J2930

== ENCOUNTER 2018-10-24 09:35 | Observation (INO) ==
--- NOTE | 2018-10-24 10:03 | ED ---
HPI General Chief Complaint: Chest Pain Stated Complaint: chest pain/headache/coughing Time Seen by Provider: 10/24/18 09:53 Source: patient Mode of arrival: ambulatory Limitations: no limitations History of Present Illness HPI narrative: 58 y/o male states that for the past month he has been off of his high blood pressure and diabetes medication because he has not wanted to leave his house to get his physical. He states he does have insurance. He states that he does use alcohol daily and intermittently uses cocaine but has not used it recently. He states he has been having chest pressure over the past couple of days and because of this when he try to get a back injection he was told he needed to get this checked out first. He states this morning he woke up with some redness to his eye after he had a cough as well. He states he intermittently gets headaches but denies one currently. He states he took 2 aspirin today and has nitroglycerin at home that he has been using with his chest pain. He states that he has not had a cardiac catheterization in the past but does now he had a stress test but does not know when. History is limited from patient as he is a poor historian. Related Data Home Medications Medication Instructions Recorded Confirmed albuterol sulfate [ProAir HFA] 2 puff INHALATION Q4-6H PRN 10/24/18 10/24/18 aspirin 325 mg PO DAILY 10/24/18 10/24/18 fluticasone-salmeterol [Advair HFA] 2 puff INHALATION Q12H 10/24/18 10/24/18 hydrocodone-acetaminophen [Loomis] 1 tab PO Q6H PRN 10/24/18 10/24/18 lisinopril 5 mg PO DAILY 10/24/18 10/24/18 metformin 500 mg PO BID 10/24/18 10/24/18 Allergies Allergy/AdvReac Type Severity Reaction Status Date / Time penicillin G Allergy Severe UNKNOWN Verified 09/21/17 14:13 Review of Systems ROS: all other systems reviewed are negative PMFSH History History Provided By: Patient (Hypertension, diabetes, 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) Medical History Medical History HTN (hypertension) (Acute) History of cocaine use (Acute) Hx of chest pain (Acute) Hx of congestive heart failure (Acute) Surgical History Surgical History Hx of removal of testicle (Acute) Social History Social History Substance History: Active Abuse Smoking Status: Current every day smoker Tobacco Type: Cigarettes How Often Do You Have a Drink Containing Alcohol: 4 or more times a week Recent Travel in [facility] within the Last 8 Weeks: No Recent Out of Country Travel within the Last 8 Weeks: No Exam Narrative Exam Narrative: GENERAL: 58 y/o male in no apparent distress SKIN: Focused skin assessment warm/dry. HEAD: Atraumatic. Normocephalic. EYES: Pupils equal and round. Patient has conjunctival hemorrhage to right lower eye without noted foreign body, patient has no pain to this area ENT: No nasal bleeding or discharge. Mucous membranes pink and moist. NECK: Trachea midline. No JVD. CARDIOVASCULAR: Regular rate and rhythm. No murmur appreciated. RESPIRATORY: No accessory muscle use. Clear to auscultation. Breath sounds equal bilaterally. GASTROINTESTINAL: Abdomen soft, non-tender MUSCULOSKELETAL: No obvious deformities. No clubbing. No cyanosis. NEUROLOGICAL: Awake and alert. Motor grossly within normal limits. Normal speech. PSYCHIATRIC: Appropriate mood and affect; insight and judgment normal. Course Reevaluation(s) Reevaluation #1: Repeat blood pressure 168/99. He does not know what his usual blood pressure medications are. He will need to have his home medications restarted and his blood pressure trended. For his chest pain he has significant risk factors he will be watched in the chest pain center for this. He currently has very mild wheezing so he will be given 1 DuoNeb for this but does not appear to be in an active COPD exacerbation. Patient agrees to plan of care Initial Documented Vital Signs Temperature 98.3 F 10/24/18 09:43 Pulse Rate 82 10/24/18 09:43 Respiratory Rate 20 10/24/18 09:43 Blood Pressure 205/93 H 10/24/18 09:43 Pulse Oximetry 94 L 10/24/18 09:43 Last Documented Vital Signs Temperature 98.3 F 10/24/18 09:43 Pulse Rate 72 10/24/18 10:13 Respiratory Rate 26 H 10/24/18 10:13 Blood Pressure 205/93 H 10/24/18 09:43 Pulse Oximetry 96 10/24/18 10:13 Medical Decision Making MDM Narrative Medical decision making narrative: We will check blood work and imaging and dose with nitroglycerin. Patient was counseled on alcohol use, cocaine use and tobacco cessation. He agrees to workup needed here in the hospital. Medical Screen Exam Complete: Yes Emergency Medical Condition: Yes Differential Diagnosis Differential Diagnosis: [place], angina, CHF Lab Data Result diagrams: 10/24/18 10:00 10/24/18 11:20 Lab Results 10/24/18 10/24/18 10/24/18 Range/Units 10:00 10:00 10:00 WBC 6.2 (4.0-11.0) th/mm3 RBC 4.78 (4.50-5.90) mil/mm3 Hgb 15.1 (13.0-17.0) gm/dL Hct 45.3 (39.0-51.0) % MCV 94.7 (80.0-100.0) fL MCH 31.5 (27.0-34.0) pg MCHC 33.3 (32.0-36.0) % RDW 15.0 (11.6-17.2) % Plt Count 290 (150-450) th/mm3 MPV 8.5 (7.0-11.0) fL Neut % (Auto) 52.7 (16.0-70.0) % Lymph % (Auto) 34.0 (9.0-44.0) % Ritchie % (Auto) 9.8 H (0.0-8.0) % Eos % (Auto) 2.9 (0.0-4.0) % Baso % (Auto) 0.6 (0.0-2.0) % Neut # (Auto) 3.3 (1.8-7.7) th/mm3 Lymph # (Auto) 2.1 (1.0-4.8) th/mm3 Ritchie # (Auto) 0.6 (0.0-0.9) th/mm3 Eos # (Auto) 0.2 (0.0-0.4) th/mm3 Baso # (Auto) 0.0 (0.0-0.2) th/mm3 WBC Differential . Differential Comment Auto diff final PT (9.8-11.6) sec INR Ratio APTT (23.4-31.7) sec Sodium (136-145) meq/L Potassium (3.5-5.1) meq/L Chloride (98-107) meq/L Carbon Dioxide (21.0-32.0) meq/L Anion Gap (5-15) meq/L BUN (7-18) mg/dL Creatinine (0.60-1.30) mg/dL Estimated GFR (>89) mL/min Random Glucose (74-106) mg/dL Calcium (8.5-10.1) mg/dL Magnesium (1.5-2.5) mg/dL Total Bilirubin (0.2-1.0) mg/dL AST (15-37) U/L ALT (12-78) U/L Alkaline Phosphatase (45-117) U/L Total Creatine Kinase (39-308) U/L Troponin I (0.02-0.05) ng/mL B-Natriuretic Peptide 44 (0-100) pg/mL Total Protein (6.4-8.2) g/dL Albumin (3.4-5.0) g/dL Serum Alcohol Cancelled 10/24/18 10/24/18 Range/Units 11:20 11:20 WBC (4.0-11.0) th/mm3 RBC (4.50-5.90) mil/mm3 Hgb (13.0-17.0) gm/dL Hct (39.0-51.0) % MCV (80.0-100.0) fL MCH (27.0-34.0) pg MCHC (32.0-36.0) % RDW (11.6-17.2) % Plt Count (150-450) th/mm3 MPV (7.0-11.0) fL Neut % (Auto) (16.0-70.0) % Lymph % (Auto) (9.0-44.0) % Ritchie % (Auto) (0.0-8.0) % Eos % (Auto) (0.0-4.0) % Baso % (Auto) (0.0-2.0) % Neut # (Auto) (1.8-7.7) th/mm3 Lymph # (Auto) (1.0-4.8) th/mm3 Ritchie # (Auto) (0.0-0.9) th/mm3 Eos # (Auto) (0.0-0.4) th/mm3 Baso # (Auto) (0.0-0.2) th/mm3 WBC Differential Differential Comment PT 9.8 (9.8-11.6) sec INR 1.0 Ratio APTT 30.1 (23.4-31.7) sec Sodium 141 (136-145) meq/L Potassium 3.5 (3.5-5.1) meq/L Chloride 108 H (98-107) meq/L Carbon Dioxide 24.8 (21.0-32.0) meq/L Anion Gap 8 (5-15) meq/L BUN 13 (7-18) mg/dL Creatinine 1.06 (0.60-1.30) mg/dL Estimated GFR 86 L (>89) mL/min Random Glucose 85 (74-106) mg/dL Calcium 8.3 L (8.5-10.1) mg/dL Magnesium 2.2 (1.5-2.5) mg/dL Total Bilirubin 0.2 (0.2-1.0) mg/dL AST 18 (15-37) U/L ALT 23 (12-78) U/L Alkaline Phosphatase 70 (45-117) U/L Total Creatine Kinase 229 (39-308) U/L Troponin I 0.02 (0.02-0.05) ng/mL B-Natriuretic Peptide (0-100) pg/mL Total Protein 6.8 (6.4-8.2) g/dL Albumin 3.3 L (3.4-5.0) g/dL Serum Alcohol Less than 3 Imaging Data Radiologist's impression: Chest X-Ray 10/24/18 09:53 CONCLUSION: No acute cardiac pulmonary disease. Head CT 10/24/18 09:53 CONCLUSION: 1. Negative exam with no evidence of hemorrhage, mass or evidence of acute infarction. . Discharge Plan Discharge Disposition Patient Disposition: ED Admit(ED Internal Use Only) Discharge Order Discharge Orders: ED Use Only Admit Order (Routine); Ordered 10/24/18 Ordered By: Maribel Coley Discharge Details Diagnosis: Chest pain Physicians Team ED Provider: Maribel Coley Primary Care Provider: Primary Care Rosa IselaiGuadalupe Rxs /Orders / Referrals /Forms Prescriptions: No Action aspirin 325 mg Tablet 325 mg PO DAILY RF: 0 metformin 500 mg Tablet 500 mg PO BID RF: 0 hydrocodone-acetaminophen [Loomis] 10-325 mg Tablet 1 tab PO Q6H PRN (Reason: Pain) RF: 0 lisinopril 5 mg Tablet 5 mg PO DAILY RF: 0 albuterol sulfate [ProAir HFA] 90 mcg/actuation Hfa Aerosol Inhaler 2 puff INHALATION Q4-6H PRN (Reason: Shortness Of Breath) RF: 0 fluticasone-salmeterol [Advair HFA] 115-21 mcg/actuation Hfa Aerosol Inhaler 2 puff INHALATION Q12H RF: 0 Discharge Instructions Patient Printed Instructions: Chest Pain (ED) Status ED Status: Admitted Observation Patient
--- NOTE | 2018-10-24 10:13 | XR ---
EXAM DATE: 10/24/2018 10:09 AM EST AGE/SEX: 58 years / Male INDICATIONS: Mid chest pain. CLINICAL DATA: This is the patient's initial encounter. Patient reports that signs and symptoms have been present for 1 day and indicates a pain score of 1/10. MEDICAL/SURGICAL HISTORY: Asthma. Chronic obstructive pulmonary disease. None. COMPARISON: [facility] [place], CHEST PA & LAT, 09/21/2017. . FINDINGS: A single AP view of the chest demonstrates the lungs to be symmetrically aerated without evidence of mass, infiltrate or effusion. The cardiomediastinal contours are unremarkable. Osseous structures a re intact. CONCLUSION: No acute cardiac pulmonary disease. Electronically signed by: Gabriel Barkley MD 10/24/2018 10:11 AM EST
[2018-10-24 10:35] LABS: Baso % (Auto) 0.6 % (0.0-2.0); Eos # (Auto) 0.2 th/mm3 (0.0-0.4); Eos % (Auto) 2.9 % (0.0-4.0); Hematocrit 45.3 % (39.0-51.0); Hemoglobin 15.1 gm/dL (13.0-17.0); Lymph # (Auto) 2.1 th/mm3 (1.0-4.8); Mean Corpuscular HGB Conc 33.3 % (32.0-36.0); Mean Corpuscular Hemoglobin 31.5 pg (27.0-34.0); Mean Corpuscular Volume 94.7 fL (80.0-100.0); Mean Platelet Volume 8.5 fL (7.0-11.0); Mono # (Auto) 0.6 th/mm3 (0.0-0.9); Mono % (Auto) 9.8 % (0.0-8.0); Neut # (Auto) 3.3 th/mm3 (1.8-7.7); Neut % (Auto) 52.7 % (16.0-70.0); Platelet Count 290 th/mm3 (150-450); Red Blood Count 4.78 mil/mm3 (4.50-5.90); White Blood Count 6.2 th/mm3 (4.0-11.0)
--- NOTE | 2018-10-24 10:54 | CT ---
EXAM DATE: 10/24/2018 10:44 AM EST AGE/SEX: 58 years / Male INDICATIONS: Headache CLINICAL DATA: This is the patient's initial encounter. Patient reports that signs and symptoms have been present for 4 - 6 days and indicates a pain score of 6/10. MEDICAL/SURGICAL HISTORY: Diabetes. None. RADIATION DOSE: 39.32 CTDI (mGy) COMPARISON: Head CT 12/17/2016 [facility]. TECHNIQUE: CT of the head without contrast. Using automated exposure control and adjustment of the mA and/or kV according to patient size, radiation dose was kept as low as reasonably achievable to ob tain optimal diagnostic quality images. DICOM format image data is available electronically for revi ew and comparison. FINDINGS: Cerebrum: The ventricles are normal for age. No evidence of midline shift, mass lesion, hemorrhage or acute infarction. No extraaxial fluid collections are seen. Posterior Fossa: The cerebellum and brainstem are intact. The 4th ventricle is midline. The cerebe llopontine angle is unremarkable. Extracranial: The visualized portion of the orbits is intact. Skull: The calvaria is intact. No evidence of skull fracture. CONCLUSION: 1. Negative exam with no evidence of hemorrhage, mass or evidence of acute infarction. . Electronically signed by: Gabriel Barkley MD 10/24/2018 10:53 AM EST
[2018-10-24 11:54] LABS: Prothrombin Time 9.8 sec (9.8-11.6)
[2018-10-24 11:55] LABS: Activated Partial Thrombo Time 30.1 sec (23.4-31.7)
[2018-10-24 12:01] LABS: Alanine Aminotransferase 23 U/L (12-78); Albumin 3.3 g/dL (3.4-5.0); Anion Gap 8 meq/L (5-15); Aspartate Aminotransferase 18 U/L (15-37); Blood Urea Nitrogen 13 mg/dL (7-18); Calcium 8.3 mg/dL (8.5-10.1); Carbon Dioxide 24.8 meq/L (21.0-32.0); Chloride 108 meq/L (98-107); Glomerular Filtration Rate 86 mL/min (>89); Glucose,Random 85 mg/dL (74-106); Magnesium 2.2 mg/dL (1.5-2.5); Potassium 3.5 meq/L (3.5-5.1); Sodium 141 meq/L (136-145)
[2018-10-24 12:05] LABS: Alkaline Phosphatase 70 U/L (45-117); Creatine Kinase 229 U/L (39-308); Total Protein 6.8 g/dL (6.4-8.2); Troponin I 0.02 ng/mL (0.02-0.05)
[2018-10-24 12:31] LABS: Creatine Kinase MB 2.9 ng/mL (0.5-3.6)
[2018-10-24] MEDS ORDERED: Haloperidol Inj 5 MG/ML Ampul IV.PUSH PRN (13:11)
[2018-10-24] MEDS ORDERED: LORazepam 1 MG Tablet PO PRN (13:11)
[2018-10-24] MEDS ORDERED: Acetaminophen 500 MG Tablet PO PRN (13:11)
--- NOTE | 2018-10-24 13:32 | ECG ---
Date Performed: 10/24/2018 Time Performed: 10:07:12 PTAGE: 58 years EKG: Sinus rhythm WITH SINUS ARRHYTHMIA NONSPECIFIC ST & T-WAVE ABNORMALITY BORDERLINE ECG PREVIOUS TRACING : 09/21/2017 13.56 Since the previous tracing, no significant change noted DOCTOR: Tejas Nicolas Interpretating Date/Time 10/24/2018 13:30:17
[2018-10-24] MEDS: Lisinopril 5 MG Tablet PO SCH (14:36)
--- NOTE | 2018-10-24 14:44 | P.HPCA ---
History of Present Illness Primary Care Physician: No Primary Care Physician Chief Complaint: Chest pain History of Present Illness: This is a 58-year-old male with history of hypertension, diabetes, chronic back pain, tobacco abuse, alcohol abuse, and substance abuse that presents to ED with complaint of intermittent chest discomforts for 1 week. States they are random. Nothing in particular seemed to bring it on. States he really has nothing exertional. When it occurs he will become short of breath. Symptoms last anywhere from 5 minutes to 30 minutes. Last time he had the discomfort was yesterday. He was at his pain management visit for his chronic back pain and was discussing with him that he was having some discomfort in his chest and was advised to go to the emergency department at that time. He states he was not ready to go to the emergency room yesterday but decided to come today. He has not had a discomfort since that time. States he has had cardiac workups in the past. Cannot recall ever having a cardiac catheterization. Upon reviewing records he had a nonischemic nuclear ETT at this facility in 2010 as well as 2009. He had a chemical stress test with Dr. Newman and 2014 that was nonischemic with an EF of 67% however he states he has not seen Dr. Newman since then. States he ran out of his blood pressure medicine 2 weeks ago but has not made appointment to follow-up with a doctor to to get this renewed. States that he was taking lisinopril and it did control his blood pressure when he was taken it. There is family history of CAD, states his mother had MIs beginning in her 70s. Patient has history of hypertension, diabetes, chronic back pain, tobacco abuse , alcohol abuse, cocaine abuse. Denies hyperlipidemia, states he is never been on statin therapy although he should be on medication with his history of diabetes. That was explained to the patient in detail. Denies known CAD. States his mother had MIs with onset in her 70s. Admits to smoking 1/2 pack of cigarettes daily for 45 years. He has on average 4 beers and 1 pint of vodka daily. Abuses cocaine on average 3 times a week last time being 4 days ago and his birthday. - Diagnosis (1) Chest pain (2) Hypertension (3) Diabetes (4) Chronic back pain (5) Tobacco abuse (6) Alcohol abuse (7) Substance abuse Review of Systems General: Patient denies fevers, chills, and recent travel. HEENT: Patient denies headache, sore throat, difficulty swallowing. Cardiovascular: Has the chest discomfort as mentioned above. Denies sensation of heart beating rapidly or irregularly. No syncope. Denies diaphoresis. Respiratory: He was short of breath. States he occasionally will wheeze. He states he was wheezing this morning but it seemed to resolve after getting a breathing treatment in the emergency department. States he has medication for this at home. Denies inspirational chest discomfort. Denies coughing or hemoptysis. GI: Patient denies nausea, vomiting, diarrhea, abdominal pain, bloody stools. Musculoskeletal: Chronic back pain. Patient denies joint pain or edema. Denies calf pain or edema. Neurovascular: Patient denies numbness, tingling, weakness in extremities. Denies headache. Endocrine: Denies polyuria and polydipsia. Hematologic: Denies easy bruising. Skin: Denies rash or itching. [facility] - History History Provided By: Patient (Hypertension, diabetes, 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) - Medical History Medical History: Medical History (Last Updated 10/24/18 @ 10:18 by Ayana Edwards) HTN (hypertension) History of cocaine use Hx of chest pain Hx of congestive heart failure - Surgical History Surgical History: Surgical History (Last Updated 10/24/18 @ 10:18 by Ayana Edwards) Hx of removal of testicle - Tobacco History Tobacco Use In Past 30 Days: Yes Smoking Status: Current every day smoker Tobacco Type: Cigarettes - Alcohol History How Often Do You Have a Drink Containing Alcohol: 4 or more times a week - Substance Use History Substance History: Active Abuse - Substance Use Type Crack/Cocaine Status: Active Route Used: Inhalation - Travel History Recent Travel in the [place] Within the Last 8 Weeks: No Recent Travel Out of the Country Within the Last 8 Weeks: No - Immunization History Tetanus Immunization: <5 Years Medications and Allergies Active Medications: Active Medications Acetaminophen (Tylenol) 500 mg PO Q6H PRN PRN Reason: pain scale 1-5 Hydrocodone Bitart/Acetaminophen (Harned 7.5/325) 1 tab PO Q6H PRN PRN Reason: pain scale 6-10 Albuterol (Duoneb Neb (Prn)) 1 ampul NEB Q4HR NEB PRN PRN Reason: SHORTNESS OF BREATH/WHEEZING Aspirin (Aspirin) 325 mg PO DAILY MAXIMO Clonidine HCl (Catapres) 0.1 mg PO Q6H PRN PRN Reason: SBP >165 OR DBP > 110 Flumazenil (Romazecon Inj) 0.2 mg IV.PUSH Q1M PRN PRN Reason: OVERSEDATION Haloperidol Lactate (Haldol Inj) 1 mg IV.PUSH Q15M PRN PRN Reason: for severe agitation Insulin Human Regular (Novolin R Correctional Sugar Inj) 0 units SQ ACHS MAXIMO; Protocol Lisinopril (Prinivil) 5 mg PO DAILY MAXIMO Lorazepam (Ativan) 1 mg PO Q4H PRN PRN Reason: for CIWA 8-10 Lorazepam (Ativan Inj) 2 mg IV.PUSH Q2H PRN PRN Reason: for CIWA 11-14 Lorazepam (Ativan Inj) 2 mg IV.PUSH Q1H PRN PRN Reason: for CIWA 15-20 Lorazepam (Ativan Inj) 2 mg IV.PUSH Q15M PRN PRN Reason: for CIWA > 20 Lorazepam (Ativan Inj) 1 mg IV.PUSH Q4H PRN PRN Reason: for CIWA 8-10 Lorazepam (Ativan) 2 mg PO Q2H PRN PRN Reason: for CIWA 11-14 Ondansetron HCl (Zofran Inj) 4 mg IV.PUSH Q6H PRN PRN Reason: NAUSEA Sodium Chloride (Ns Flush) 2 ml IV.FLUSH BID MAXIMO Sodium Chloride (Ns Flush) 2 ml IV.FLUSH PRN PRN PRN Reason: FLUSH AFTER USING IV ACCESS Allergies Allergy/AdvReac Type Severity Reaction Status Date / Time penicillin G Allergy Severe UNKNOWN Verified 09/21/17 14:13 Home Medications Medication Instructions Recorded Confirmed Type albuterol sulfate [ProAir HFA] 2 puff INHALATION Q4-6H PRN 10/24/18 10/24/18 History aspirin 325 mg PO DAILY 10/24/18 10/24/18 History fluticasone-salmeterol [Advair HFA] 2 puff INHALATION Q12H 10/24/18 10/24/18 History hydrocodone-acetaminophen [Harned] 1 tab PO Q6H PRN 10/24/18 10/24/18 History lisinopril 5 mg PO DAILY 10/24/18 10/24/18 History metformin 500 mg PO BID 10/24/18 10/24/18 History Exam Vital signs: Vital Signs 10/24/18 09:43 10/24/18 10:13 10/24/18 12:17 Temperature 98.3 F Pulse Rate 82 72 74 Respiratory Rate 20 26 H Blood Pressure 205/93 H 168/99 H Pulse Oximetry 94 L 96 95 10/24/18 12:22 Temperature Pulse Rate 65 Respiratory Rate 20 Blood Pressure Pulse Oximetry Intake & Output 10/23/18 10/24/18 10/24/18 18:59 06:59 18:59 Weight 99.79 kg Narrative: GENERAL: This is a well-nourished, well-developed patient, in no apparent distress. Patient speaks in clear complete sentences. Patient is pleasant. HEENT: Head is atraumatic and normocephalic. Neck is supple without lymphadenopathy and trachea is midline. No JVD or carotid bruits. CARDIOVASCULAR: Regular rate and rhythm without murmurs, gallops, or rubs. RESPIRATORY: Clear to auscultation. Breath sounds equal bilaterally. No wheezes , rales, or rhonchi. Chest wall is nontender. No use of accessory muscles. GASTROINTESTINAL: Abdomen is nontender, nondistended. Abdomen soft. No obvious pulsatile mass or bruit. No CVA tenderness. Strong femoral pulses bilaterally. Normal bowel sounds in all quadrants. MUSCULOSKELETAL: Patient is moving upper and lower extremities freely. No calf tenderness or edema, no Homans sign. Strong pulses in upper and lower extremities. NEUROLOGICAL: Patient is alert and oriented. Cranial nerves 2-12 are grossly intact. No focal deficits and speech is clear. SKIN: No rash and turgor is normal. Results 10/24/18 10:00 10/24/18 11:20 Cardiac Enzymes 10/24/18 10/24/18 Range/Units 10:00 11:20 AST 18 (15-37) U/L CK-MB (CK-2) 2.9 (0.5-3.6) ng/mL Troponin I 0.02 (0.02-0.05) ng/mL B-Natriuretic Peptide 44 (0-100) pg/mL Coagulation 10/24/18 10/24/18 Range/Units 10:00 11:20 PT 9.8 (9.8-11.6) sec APTT 30.1 (23.4-31.7) sec B-Natriuretic Peptide 44 (0-100) pg/mL CBC 10/24/18 Range/Units 10:00 WBC 6.2 (4.0-11.0) th/mm3 RBC 4.78 (4.50-5.90) mil/mm3 Hgb 15.1 (13.0-17.0) gm/dL Hct 45.3 (39.0-51.0) % Plt Count 290 (150-450) th/mm3 Neut # (Auto) 3.3 (1.8-7.7) th/mm3 Lymph # (Auto) 2.1 (1.0-4.8) th/mm3 Wilkin # (Auto) 0.6 (0.0-0.9) th/mm3 Eos # (Auto) 0.2 (0.0-0.4) th/mm3 Baso # (Auto) 0.0 (0.0-0.2) th/mm3 Comprehensive Metabolic Panel 10/24/18 Range/Units 11:20 Sodium 141 (136-145) meq/L Potassium 3.5 (3.5-5.1) meq/L Chloride 108 H (98-107) meq/L Carbon Dioxide 24.8 (21.0-32.0) meq/L BUN 13 (7-18) mg/dL Creatinine 1.06 (0.60-1.30) mg/dL Calcium 8.3 L (8.5-10.1) mg/dL AST 18 (15-37) U/L ALT 23 (12-78) U/L Alkaline Phosphatase 70 (45-117) U/L Total Protein 6.8 (6.4-8.2) g/dL Albumin 3.3 L (3.4-5.0) g/dL Intake and Output 10/23/18 10/24/18 10/24/18 22:59 06:59 14:59 Other: Weight 99.79 kg Patient Weight 10/25/18 06:59 Weight 99.79 kg - Imaging and Cardiology Imaging: Impressions Chest X-Ray 10/24/18 09:53 CONCLUSION: No acute cardiac pulmonary disease. Head CT 10/24/18 09:53 CONCLUSION: 1. Negative exam with no evidence of hemorrhage, mass or evidence of acute infarction. . EKG interpretations - EKG EKG shows: sinus rhythm (Initial EKG sinus rhythm rate of 71 with nonspecific lateral T wave changes.) Caprini VTE Risk Assessment Caprini VTE Risk Assessment: No/Low Risk (score <= 1) Caprini Risk Assessment Model: Point Value = 1 Point Value = 2 Point Value = 3 Point Value = 5 Age 41-60 Minor surgery BMI > 25 kg/m2 Swollen legs Varicose veins or History of unexplained or recurrent spontaneous Oral contraceptives or hormone replacement Sepsis (< 1 month) Serious lung disease, including pneumonia (< 1 month) Abnormal pulmonary function Acute myocardial infarction Congestive heart failure (< 1 month) History of inflammatory bowel disease Medical patient at bed rest Age 61-74 Arthroscopic surgery Major open surgery (> 45 min) Laparoscopic surgery (> 45 min) Malignancy Confined to bed (> 72 hours) Immobilizing plaster cast Central venous access Age >= 75 History of VTE Family history of VTE Factor V Leiden Prothrombin [id number] Lupus anticoagulant Anticardiolipin antibodies Elevated serum homocysteine Heparin-induced thrombocytopenia Other congenital or acquired thrombophilia Stroke (< 1 month) Elective arthroplasty Hip, pelvis, or leg fracture Acute spinal cord injury (< 1 month) Prophylaxis Regimen: Total Risk Factor Score Risk Level Prophylaxis Regimen 0-1 Low Early ambulation 2 Moderate Order ONE of the following: *Sequential Compression Device (SCD) *Heparin 5000 units SQ BID 3-4 Higher Order ONE of the following medications: *Heparin 5000 units SQ TID *Enoxaparin/Lovenox 40 mg SQ daily (WT < 150 kg, CrCl > 30 mL/min) *Enoxaparin/Lovenox 30 mg SQ daily (WT < 150 kg, CrCl > 10-29 mL/min) *Enoxaparin/Lovenox 30 mg SQ BID (WT < 150 kg, CrCl > 30 mL/min) AND/OR *Sequential Compression Device (SCD) 5 or more Highest Order ONE of the following medications: *Heparin 5000 units SQ TID (Preferred with Epidurals) *Enoxaparin/Lovenox 40 mg SQ daily (WT < 150 kg, CrCl > 30 mL/min) *Enoxaparin/Lovenox 30 mg SQ daily (WT < 150 kg, CrCl > 10-29 mL/min) *Enoxaparin/Lovenox 30 mg SQ BID (WT < 150 kg, CrCl > 30 mL/min) AND *Sequential Compression Device (SCD) Assessment and Plan - Assessment (1) Chest pain Code(s): R07.9 - Chest pain, unspecified Status: Acute (2) Hypertension Code(s): I10 - Essential (primary) hypertension Status: Acute (3) Diabetes Code(s): E11.9 - Type 2 diabetes mellitus without complications Status: Acute (4) Chronic back pain Code(s): M54.9 - Dorsalgia, unspecified; G89.29 - Other chronic pain Status: Acute (5) Tobacco abuse Code(s): Z72.0 - Tobacco use Status: Acute (6) Alcohol abuse Code(s): F10.10 - Alcohol abuse, uncomplicated Status: Acute (7) Substance abuse Code(s): F19.10 - Other psychoactive substance abuse, uncomplicated Status: Acute - Plan * Chest pain: Patient will continue to have serial cardiac enzymes and EKGs for ruling out purposes. He will be seen by Dr. Blas Khan of cardiology in the chest pain center. He will have a Lexiscan in the morning if he rules out. He would be discharged home if stress test is nonischemic with instructions to follow-up with PCP. Return to ED for interval issues. * Hypertension: Restart his lisinopril. He will need to discuss this with his PCP. Lisinopril is a choice as he is diabetic but may also require amlodipine. * Diabetes: Sliding scale insulin coverage while in chest pain center. Follow diabetic diet. Resume medication at discharge. He also should discuss being on cholesterol medicine with his history of diabetes. He should discuss this with his PCP. 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 * Tobacco abuse: Patient counseled on the importance of smoking cessation. * Alcohol abuse: There will be CIWA precautions. Advised that he needs to get help with his alcohol dependence as he needs to avoid alcohol. * Cocaine abuse: Patient counseled importance of never using cocaine again. It was explained to him that this could kill him. He voices understanding. Patient is stable at this time. He is agreeable to this plan. (1) Chest pain Qualifiers: Chest pain type: unspecified Qualified Code(s): R07.9 - Chest pain, unspecified
[2018-10-24 15:03] LABS: Creatine Kinase 219 U/L (39-308)
[2018-10-24 16:21] LABS: Amphetamine Screen,Urine Neg (Neg); Barbiturate Screen,Urine Neg (Neg); Cannabinoid Screen,Urine Pos (Neg); Cocaine Screen,Urine Pos (Neg)
[2018-10-24 16:26] LABS: Opiate Screen,Urine Neg (Neg)
[2018-10-24] MEDS: amLODIPine 5 MG Tablet PO SCH (18:00)
[2018-10-24] MEDS: Insulin NovoLIN Regular Correctional Sugar Inj SQ SCH ×2 (18:05→20:25)
[2018-10-24 18:32] LABS: Creatine Kinase 289 U/L (39-308)
[2018-10-25] MEDS: amLODIPine 5 MG Tablet PO SCH (08:07)
[2018-10-25] MEDS: Lisinopril 5 MG Tablet PO SCH (08:08)
[2018-10-25 08:10] VITALS: BP 165/68; RESP 18; TEMP 98.4
[2018-10-25] MEDS ORDERED: Regadenoson Inj 0.4 MG/5 ML Syringe IV.PUSH ONE (08:55)
[2018-10-25] MEDS ORDERED: Aspirin 325 MG Tablet PO SCH (09:00)
[2018-10-25] MEDS: Insulin NovoLIN Regular Correctional Sugar Inj SQ SCH (09:13)
--- NOTE | 2018-10-25 09:14 | ECG ---
Date Performed: 10/24/2018 Time Performed: 14:44:30 PTAGE: 58 years EKG: Sinus rhythm WITH SINUS ARRHYTHMIA ST DEVIATION AND MODERATE T-WAVE ABNORMALITY, CONSIDER LATERAL ISCHEMIA ABNORM AL ECG PREVIOUS TRACING : 10/24/2018 10.07 Since previous tracing, no significant change noted DOCTOR: Blas Khan Interpretating Date/Time 10/25/2018 09:13:18
--- NOTE | 2018-10-25 09:18 | ECG ---
Date Performed: 10/24/2018 Time Performed: 17:35:33 PTAGE: 58 years EKG: Sinus rhythm NONSPECIFIC T-WAVE ABNORMALITY BORDERLINE ECG PREVIOUS TRACING : 10/24/2018 14.44 Since previous tracing, no significant change noted DOCTOR: Blas Khan Interpretating Date/Time 10/25/2018 09:18:09
--- NOTE | 2018-10-25 10:53 | NM ---
EXAM DATE: 10/25/2018 10:38 AM EST AGE/SEX: 58 years / Male INDICATIONS:Angina. Congestive heart failure Chest pain. CLINICAL DATA: This is the patient's initial encounter. Patient reports that signs and symptoms have been present for 2 days and indicates a pain score of 2/10. MEDICAL/SURGICAL HISTORY: Hypertension. . Testicle removed. [place] [facility] [place]PECT[place] 08/26/2011. . DOSE: 11 mCi Tc 99m Myoview at rest 26.4 mCi [id number] at stress 0.4 mg Lexiscan STRESS SYMPTOMS: Short of breath. EJECTION FRACTION: 43 % TECHNIQUE: The patient underwent pharmacologic stress with infusion of prescribed dose. Continuous ECG tracing was monitored during stress. Gated SPECT imaging was performed after stress and conventi onal SPECT imaging was performed at rest. The examination was performed on a SPECT/CT scanner, both attenuation and non-corrected datasets were reviewed. FINDINGS: Distribution: The maximum perfused segment at stress is in the septal wall. Perfusion Study: The pattern of perfusion at stress is within normal limits. There is a summed st ress score of 3. Gated Study: There are intact wall motion and wall thickening without definite hypokinetic or dyskin etic segments. The ejection fraction is calculated at 43%. RISK CATEGORY: Intermediate (1-3 % Annual Mortality Rate) CONCLUSION: 1. Decreased calculated ejection fraction of 43% with no focal wall motion abnormality identified. N o fixed or reversible wall defects to suggest ischemia or infarction. Electronically signed by: Gabriel Barkley MD 10/25/2018 10:52 AM EST
[2018-10-25 11:43] VITALS: O2SAT 97
[2018-10-25 12:59] VITALS: PULSE 77
--- NOTE | 2018-10-26 07:45 | TR ---
Date Performed: 10/25/2018 Time Performed: 09:40:57 DOCTOR: Blas Khan DRUG LIST: CLINICAL HISTORY: REASON FOR TEST: REASON FOR ENDING: OBSERVATION: CONCLUSION: COMMENTS: Lexiscan stress test was performed under standard four minute protocol. Radionuclide was injected one minute prior to ending the test. No electrocardiographic abormalities were present t o suggest ischemia. Nuclear imaging and interpretation are pending.
== END 2018-10-25 12:58 | disposition home or self-care (01) ==
LOC: NEDA 09:35 → NEPC 09:35 → NEDA 15:52 → NEPFCDU 15:56
PROVIDERS: ADMIT Internal Medicine Cardiovascular Disease; ATTEND Internal Medicine Cardiovascular Disease